=== PATIENT | female | born 1980 | race Two or more races ===

== ENCOUNTER → 2019-07-11 | Outpatient (CLI) | payer OTHER | LOC: OD 15:10 | PROVIDERS: ATTEND Otolaryngology | DX: J30.9 Allergic rhinitis, unspecified (principal) | CPT/HCPCS: 36415; 82785; 86003 ==

== ENCOUNTER → 2020-01-21 | Outpatient (CLI) | payer OTHER ==
--- NOTE | 2020-01-21 11:58 | RADIOLOGY REPORT (SQ) ---
EXAM DESCRIPTION: ANKLE LEFT COMPLETE COMPLETED DATE/TIME: 01/21/2020 11:11 am REASON FOR STUDY: SPRAIN OF UNSPECIFIED LIGAMENT OF LEFT ANKLE, INIT ENCNTR S93.402A SPRAIN OF UNSP ECIFIED LIGAMENT OF LEFT ANKLE, INIT COMPARISON: None. NUMBER OF VIEWS: Three views. TECHNIQUE: AP, lateral, and oblique radiographic images acquired of the left ankle. LIMITATIONS: None. FINDINGS: MINERALIZATION: Normal. BONES: No acute fracture or dislocation. No worrisome bone lesions. JOINTS: No effusions. SOFT TISSUES: Moderate to moderate severe soft tissue swelling, more so lateral. No foreign body. OTHER: No other significant finding. IMPRESSION: 1. Soft tissue swelling. Correlation suggested. 2. No acute osseous findings. TECHNICAL DOCUMENTATION: JOB ID: [id number] 2010 [employer]- All Rights Reserved Reading location - IP/workstation name: [email or web address]
== END ==
LOC: RAD 10:58
PROVIDERS: ATTEND Nurse Practitioner Acute Care
DX: S93.402A Sprain of unspecified ligament of left ankle, initial encounter (principal); X58.XXXA Exposure to other specified factors, initial encounter